=== PATIENT | female | born 1980 | race Caucasian/White ===

== ENCOUNTER → 2023-10-25 | Outpatient (CLI) | payer BC ==
[2023-10-25 13:01] LABS: BASO % 0.5 % (0.0-1.0); EOS # 0.2 10^3/uL (0.0-0.5); EOS % 2.5 % (0.0-3.0); HEMATOCRIT 43.4 % (36.0-47.0); HEMOGLOBIN 14.7 g/dl (12.0-15.5); LYMPH # 1.1 10^3/uL (1.5-5.0); LYMPH % 16.9 % (24.0-44.0); MEAN CORPUSCULAR HEMOGLOBIN 32.1 pg (27.0-33.0); MEAN CORPUSCULAR HGB CONC 33.9 g/dl (32.0-36.5); MEAN CORPUSCULAR VOLUME 94.8 fl (80.0-96.0); MONO # 0.4 10^3/uL (0.0-0.8); MONO % 5.9 % (2.0-8.0); NEUTROPHILS # 4.7 10^3/uL (1.5-8.5); NEUTROPHILS % 73.9 % (36.0-66.0); PLATELET COUNT, AUTOMATED 328 10^3/uL (150-450); RED BLOOD COUNT 4.58 10^6/uL (4.00-5.40); WHITE BLOOD COUNT 6.3 10^3/uL (4.0-10.0)
[2023-10-25 13:29] LABS: ALKALINE PHOSPHATASE 75 U/L (46-116); ALT/SGPT 14 U/L (7.0-40); AST/SGOT 12 U/L (<34); BILIRUBIN,TOTAL 0.6 MG/DL (0.3-1.2); BLOOD UREA NITROGEN 6 MG/DL (9-23); CARBON DIOXIDE LEVEL 27 MMOL/L (20-31); CHLORIDE LEVEL 108 MMOL/L (98-107); CHOLESTEROL LEVEL 150 MG/DL (<200); CREATININE FOR GFR 0.75 MG/DL (0.55-1.30); GLOMERULAR FILTRATION RATE > 60.0 (>58); GLUCOSE, FASTING 79 MG/DL (60-100); HDL CHOLESTEROL 38.4 MG/DL (>40); LDL CHOLESTEROL 92.6 MG/DL (<100); NON-HDL-C 111.6 MG/DL; POTASSIUM SERUM 3.7 MMOL/L (3.5-5.1); SODIUM LEVEL 139 MMOL/L (136-145); TOTAL PROTEIN 6.9 G/DL (5.7-8.2); TRIGLYCERIDES LEVEL 95 MG/DL (<150)
[2023-10-25 13:30] LABS: FREE T4 1.12 NG/DL (0.89-1.76)
[2023-10-25 13:31] LABS: THYROID STIMULATING HORMONE 1.834 uIU/ML (0.55-4.78)
== END ==
LOC: M LAB 11:38
PROVIDERS: ATTEND Registered Nurse
DX: Z00.00 Encounter for general adult medical examination without abnormal findings (principal)